=== PATIENT | female | born 1980 | race African-American/Black ===

== ENCOUNTER → 2020-04-06 | Outpatient (CLI) | payer BC, OTHER ==
[~2020-04-06] MED LIST: APAP500 PO; DERMOPLAST SPRA56 ML; HYDROCORTISONE30 G9 RE; IBUPROFEN 800800 M1 PO; LANOLIN56 GM; PRENATAL; TUCKS MEDICATE1 EAC1; ZOFRAN 4 MG ORAL4 M1 DIS
== END ==
LOC: LAB 12:27
PROVIDERS: ATTEND Anesthesiology
DX: Z01.812 Encounter for preprocedural laboratory examination (principal); Z20.822 Contact with and (suspected) exposure to COVID-19